=== PATIENT | female | born 1990 | race Hispanic/Latino ===

== ENCOUNTER → 2016-07-01 | Outpatient (CLI) | payer OTHER ==
[2016-07-01 13:54] LABS: BASO % 0.3 % (0.0-1.0); EOS # 0.1 K/mm3 (0.0-0.50); EOS % 1.5 % (0.0-3.0); LARGE UNSTAINED CELL # 0.1 K/mm3 (0.0-0.4); LARGE UNSTAINED CELL % 1.2 % (0.0-4.0); LYMPH # 1.1 K/mm3 (1.5-6.5); LYMPH % 16.7 % (24.0-44.0); MEAN CORPUSCULAR HEMOGLOBIN 29.8 pg (27.0-33.0); MEAN CORPUSCULAR HGB CONC 33.1 g/dl (32.0-36.5); MEAN CORPUSCULAR VOLUME 90.2 fl (80.0-96.0); MONO # 0.2 K/mm3 (0.0-0.8); MONO % 2.8 % (0.0-5.0); NEUTROPHILS # 5.3 K/mm3 (1.8-7.7); NEUTROPHILS % 77.5 % (36.0-66.0); PLATELET COUNT, AUTOMATED 354 k/mm3 (150-450); RED CELL DISTRIBUTION WIDTH 12.5 % (11.5-14.5); WHITE BLOOD COUNT 6.8 K/mm3 (4.0-10.0)
[2016-07-01 14:06] LABS: HBsAg Prenatal NEGATIVE (NEGATIVE)
== END ==
LOC: M SMT 09:24
PROVIDERS: ATTEND Advanced Practice Midwife
DX: Z34.81 Encounter for supervision of other normal pregnancy, first trimester (principal)

== ENCOUNTER → 2016-09-12 | Outpatient (CLI) | payer OTHER ==
--- NOTE | 2016-09-12 15:05 | REP ---
Clinical: Anatomical evaluation. Comparison: None . Findings: Examination demonstrates a single live intrauterine in transverse (head to maternal left) presentation. motion is identified by technologist. Placenta is noted anteriorly and grade zero without evidence for placenta previa or abruption. Amniotic fluid volume is normal. Cervix measures 4.8 cm in length and appears closed. No evidence for nuchal cord. Gestational age by LMP 19 weeks 0 days with GLENN 02/06/2017 . Gestational age by current measurements 20 weeks 3 days with GLENN 01/27/2017 . FHR equals 141 beats per minute. BPD 4.7 cm 20 weeks 0 days HC 16.7 cm 19 weeks 3 days AC 16.5 cm 21 weeks 4 days FL 3.4 cm 20 weeks 5 days HL 3.1 cm 20 weeks 2 days HC/AC ratio 1.01 Estimated weight 386 grams (90th percentile based on age by current measurements). Anatomical assessment demonstrates normal structures including cranium, choroid plexus, cavum, cerebellum/posterior fossa, facial profile, diaphragm, stomach, cord insertion/three-vessel cord, bladder, and extremities. Limited evaluation of the facial profile, heart/ventricular outflow tracts, lungs, kidneys, and spine. Impression: Single live intrauterine in transverse lie demonstrating appropriate interval growth. Anatomical limitations as described above may warrant reevaluation and follow-up. Remainder of the examination is normal. Signed by Fleix Pope MD 09/12/2016 02:57 P
== END ==
LOC: M RAD 14:03
PROVIDERS: ATTEND Specialist
DX: Z34.81 Encounter for supervision of other normal pregnancy, first trimester (principal); Z3A.20 20 weeks gestation of pregnancy

== ENCOUNTER → 2016-09-28 | Outpatient (REF) | payer OTHER | LOC: M LAB REF 17:25 | PROVIDERS: ATTEND Advanced Practice Midwife | DX: Z34.82 Encounter for supervision of other normal pregnancy, second trimester (principal) ==

== ENCOUNTER → 2016-09-30 | Outpatient (CLI) | payer OTHER ==
--- NOTE | 2016-09-30 15:09 | REP ---
OBSTETRIC SONOGRAPHY: HISTORY: followup anatomy. Cardiac outflow tract views of the lungs, kidneys and spine and facial profile. FINDINGS: Scanning through the gravid uterus demonstrates a viable single intrauterine gestation in a transverse lie, head to the maternal right. motion is observed and heart rate is recorded at 150 beats per minute. An anterior grade 1 placenta is seen without evidence of previa or abruption. Amniotic fluid is subjectively normal. Closed cervical length is 4.3 cm. No extrauterine abnormality is observed. There has been appropriate interval growth. No anomaly is seen. The following anatomic structures are identified today and felt to be sonographically unremarkable: cranium, choroid plexus, cerebellum and posterior fossa, face and profile, lungs, four-chamber heart with left and right ventricular outflow tract views, diaphragm, left-sided stomach, abdominal wall cord insertion, three-vessel umbilical cord, kidneys and spine, bladder, upper and lower extremities. Biometry Chart: BPD 5.4 cm = 22 weeks 3 days HC 20.2 cm = 22 weeks 2 days AC 17.8 cm = 22 weeks 5 days FL 3.9 cm = 22 weeks 5 days HL 3.6 cm = 22 weeks 4 days HC/AC ratio normal 1.13. Cephalic index normal 0.74. Estimated weight 521 grams, 1 pound 2 ounces, 93rd percentile for 21 weeks 2 days. IMPRESSION: Viable single intrauterine gestation at 22 weeks 4 days by today's composite criteria. Expected gestational age estimate based on prior sonography is 23 weeks 0 days. GLENN by prior sonography January 27, 2017. anatomic survey is felt to be complete. Signed by Davion Saucedo MD 09/30/2016 04:10 P
== END ==
LOC: M RAD 13:17
PROVIDERS: ATTEND Advanced Practice Midwife
DX: Z36 Encounter for antenatal screening of mother (principal); Z3A.22 22 weeks gestation of pregnancy

== ENCOUNTER → 2016-12-02 | Outpatient (REF) | payer OTHER | LOC: M LAB REF 12:51 | PROVIDERS: ATTEND Advanced Practice Midwife | DX: Z34.82 Encounter for supervision of other normal pregnancy, second trimester (principal) ==

== ENCOUNTER → 2016-12-14 | Outpatient (CLI) | payer OTHER | LOC: M LRY 10:14 | PROVIDERS: ATTEND Obstetrics & Gynecology | DX: Z34.82 Encounter for supervision of other normal pregnancy, second trimester (principal); Z53.9 Procedure and treatment not carried out, unspecified reason ==

== ENCOUNTER → 2016-12-16 | Outpatient (CLI) | payer OTHER ==
[2016-12-16 11:26] LABS: MEAN CORPUSCULAR HEMOGLOBIN 28.7 pg (27.0-33.0); MEAN CORPUSCULAR HGB CONC 33.1 g/dl (32.0-36.5); MEAN CORPUSCULAR VOLUME 86.9 fl (80.0-96.0); RED CELL DISTRIBUTION WIDTH 13.5 % (11.5-14.5); WHITE BLOOD COUNT 6.3 10^3/uL (4.0-10.0)
== END ==
LOC: M LRY 09:01
PROVIDERS: ATTEND Obstetrics & Gynecology
DX: Z36 Encounter for antenatal screening of mother (principal); Z3A.00 Weeks of gestation of pregnancy not specified

== ENCOUNTER 2016-12-20 16:43 | Outpatient (CLI) | payer OTHER ==
[~2016-12-20] VITALS: Ht 157.5 cm; Wt 83.4 kg
[2016-12-20 17:11] VITALS: BP 127/63
== END 2016-12-20 18:08 | disposition home or self-care (01) ==
LOC: M LDO 16:43
PROVIDERS: ATTEND Advanced Practice Midwife
DX: O99.89 Other specified diseases and conditions complicating pregnancy, childbirth and the puerperium (principal); R10.2 Pelvic and perineal pain; Z3A.33 33 weeks gestation of pregnancy

== ENCOUNTER → 2017-01-16 | Outpatient (CLI) | payer OTHER | LOC: M LAB 08:09 | PROVIDERS: ATTEND Obstetrics & Gynecology | DX: Z36.89 Encounter for other specified antenatal screening (principal); Z3A.00 Weeks of gestation of pregnancy not specified ==

== ENCOUNTER 2017-01-22 15:55 | Outpatient (CLI) | payer OTHER ==
[~2017-01-22] VITALS: Ht 157.5 cm; Wt 83.7 kg
[2017-01-22 16:29] VITALS: BP 149/85
[2017-01-22 16:42] VITALS: BP 134/78
--- NOTE | 2017-01-22 16:56 | IPNPDOC ---
Text Note Date of Service The patient was seen on 01/22/17. NOTE 26yo G [id number] @ 37 6/7 gestation arrived to L and D for decreased movement. Patient states she last felt baby move "maybe 1 or 2 hours ago" Last ate and drank 1300. Denies leaking fluid, bleeding, or contractions. States baby moved just as monitor was attached. History is significant for history of Primary C section. Patient is scheduled for a repeat c/s 01/30/2017. O: Vital signs stable FHR: 120, + accels, - decel, moderate variability CTX: No palpable contractions Repeat BP 134/78 A: 37 6/7 weeks gestation, Category 1 tracing P: Discharge patient Educated on [facility], access to care, danger signs, labor signs, anterior placenta position, hydration. VS,Fishbone, I+O VS, Fishbone, I+O Vital Signs Date Time Temp Pulse Resp B/P (MAP) Pulse Ox O2 Delivery O2 Flow Rate FiO2 01/22/17 16:29 98.7 88 18 149/85 (106) Caroline Fotser CNM Jan 22, 2017 16:56
== END 2017-01-22 16:53 | disposition home or self-care (01) ==
LOC: M LDO 15:55
PROVIDERS: ATTEND Advanced Practice Midwife
DX: O36.8130 Decreased fetal movements, third trimester, not applicable or unspecified (principal); Z3A.37 37 weeks gestation of pregnancy